=== PATIENT | male | born 1955 | race African-American/Black ===

== ENCOUNTER 2024-12-14 20:24 | Inpatient (IN) | payer OTHER, MEDICARE ==
[~2024-12-14] VITALS: Ht 170.2 cm; Wt 61.6 kg
[~2024-12-14 20:24] MED LIST: ADENOSINE 3 MG/ML 2ML VIAL IV ONE; ASPIRIN; CLOP75TA33 PO; LISI2.5T47 PO; METO25TA6 PO
[2024-12-14] MEDS: MAGNESIUM 2 G PREMIX 50 ML IV ONE (20:59)
[2024-12-14] MEDS: METHYLPREDNISOLONE SOD SUCC 125MG/2ML (ACT-O-VIAL) IV ONE (20:59)
[2024-12-14] MEDS: DILTIAZEM HCL 5MG/ML 5ML VIAL IV ONE (21:10)
[2024-12-14 21:15] VITALS: RESP 21
[2024-12-14 21:44] LABS: BASOPHILS % 0.3 % (0.0-2.0); EOSINOPHILS % 0.7 % (0.0-5.0); HEMATOCRIT. 39.7 % (42.0-52.0); HEMOGLOBIN. 12.4 g/dL (14.0-18.0); LYMPHOCYTES % 32.4 % (20.0-50.0); MEAN PLATELET VOLUME 9.8 fl (7.4-10.4); MONOCYTES % 9.5 % (2.0-8.0); NEUTROPHILS % 57.1 % (40.0-76.0); PLATELET 163 x1000/uL (130-400); RED BLOOD CELL COUNT 4.15 mill/uL (4.7-6.1); RED CELL DISTRIBUTION WIDTH 18.0 % (11.6-14.6)
[2024-12-14 21:55] LABS: CREATININE 1.2 mg/dL (0.6-1.3)
[2024-12-14 21:56] LABS: UREA NITROGEN BLOOD 11 mg/dL (9-23)
[2024-12-14 21:57] LABS: ASPARTATE AMINOTRANSFERASE 40 IU/L (<34); TROPONIN I HIGH SENSITIVITY 33 ng/L (3.0-53)
[2024-12-14 21:58] LABS: BILIRUBIN DIRECT 0.3 mg/dL (<=3.0); BILIRUBIN TOTAL 0.6 mg/dL (0.1-1.0); INR 1.5; PROTEIN TOTAL 5.8 g/dL (6.0-8.3)
[2024-12-14] MEDS: INSULIN GLARGINE 100 UNITS/ML SUBCUT SCH (22:00)
[2024-12-14] MEDS ORDERED: AZITHROMYCIN 500MG/250ML 250 ML IV SCH (22:45)
[2024-12-14] MEDS: CEFTRIAXONE 2GM/50ML 50 ML IV ONE (22:45)
[2024-12-14] MEDS ORDERED: DILTIAZEM HCL 60MG TABLET PO ONE (23:00)
[2024-12-14 23:01] VITALS: RESP 17
[2024-12-14] MEDS: IPRATROPIUM/ALBUTEROL 0.5-3(2.5)MG/3ML NEB HHN ONE (23:01)
[2024-12-14] MEDS ORDERED: ZOLPIDEM TARTRATE 5MG TABLET PO PRN (23:15)
[2024-12-14] MEDS ORDERED: ONDANSETRON HCL 4MG/2ML INJ IV PRN (23:15)
[2024-12-14] MEDS ORDERED: DEXTROSE 50% WATER 50ML SYRINGE IV PRN (23:15)
[2024-12-14] MEDS ORDERED: ACETAMINOPHEN 325MG TABLET PO PRN ×2 (23:15)
[2024-12-14] MEDS ORDERED: DIPHENHYDRAMINE 50MG/ML VIAL IV PRN (23:15)
[2024-12-14] MEDS ORDERED: MAGNESIUM/ALUMINUM HYDROXIDE/SIMETHICONE 30ML UDC PO PRN (23:15)
[2024-12-14] MEDS ORDERED: CLONIDINE 0.1MG TABLET PO PRN (23:15)
[2024-12-15] VITALS (14 sets, daily range): BP systolic 97–134; BP diastolic 79–102; PULSE 118–124; RESP 14–35; TEMP 36.3–37.2; O2SAT 97–100
[2024-12-15 00:22] LABS: BG BASE EXCESS -5.1 mmol/L (-2.0-3.0); BG CARBOXYHEMOGLOBIN 0.7 % (0.5-1.5); BG DEOXYHEMOGLOBIN 0.3 % (0.0-5.0); BG FRACTION INSPIRED OXYGEN 100; BG HCO3 ACT 19.2 mmol/L (21.0-28.0); BG METHEMOGLOBIN 0.1 % (0.5-1.5); BG OXYGEN SATURATION 99.7 % (94.0-98.0); BG OXYHEMOGLOBIN 98.9 % (94.0-98.0); BG PCO2 33.5 mmHg (35.0-48.0); BG PH 7.376 (7.350-7.450); BG PO2 579.2 mmHg (83.0-108.0); BG SAMPLE SITE RIGHT BRACHIAL; BG TOTAL HEMOGLOBIN 12.7 g/dL (13.5-17.5); BG VENT MODE MASK - BIPAP; BG VENT RATE 16.0 set
[2024-12-15] MEDS: DILTIAZEM HCL 30MG TABLET PO SCH (01:49)
[2024-12-15] MEDS: SODIUM CHLORIDE 0.9% 3ML FLUSH IVF SCH (06:00)
[2024-12-15] MEDS: CHLORDIAZEPOXIDE 25MG CAPSULE PO SCH (06:45)
[2024-12-15] MEDS: METHYLPREDNISOLONE SOD SUCC 125MG/2ML (ACT-O-VIAL) IV SCH (07:01)
[2024-12-15] MEDS: PANTOPRAZOLE 40MG DR TABLET PO SCH (08:21)
[2024-12-15] MEDS: BLOOD SUGAR DIAGNOSTIC STRIP TEST SCH (08:21)
[2024-12-15] MEDS: CARVEDILOL 6.25 MG TABLET PO SCH (08:21)
[2024-12-15] MEDS: ENOXAPARIN 80MG/0.8ML SYR SUBCUT SCH (08:22)
[2024-12-15] MEDS: NICOTINE 21MG PATCH TD SCH (08:23)
[2024-12-15] MEDS: INSULIN LISPRO 100 UNITS/ML SUBCUT SCH (08:24)
[2024-12-15] MEDS: MAGNESIUM 2 G PREMIX 50 ML IV NR (13:20)
[2024-12-16] VITALS (9 sets, daily range): BP systolic 103–130; BP diastolic 76–99; PULSE 112–120; RESP 15–27; TEMP 36.1–36.7; O2SAT 98–100
[2024-12-16] MEDS: DIGOXIN 500MCG/2ML AMP IV SCH (11:13)
[2024-12-16] MEDS: FUROSEMIDE 40MG/4ML VIAL IVP SCH (11:51)
[2024-12-16] MEDS: AMIODARONE 150MG/100ML D5W 100 ML IV NR (12:14)
[2024-12-16] MEDS: AMIODARONE 360MG/200ML 200 ML IV SCH (13:39)
[2024-12-16] MEDS: IPRATROPIUM/ALBUTEROL 0.5-3(2.5)MG/3ML NEB HHN PRN (17:25)
[2024-12-17] VITALS (10 sets, daily range): BP systolic 83–140; BP diastolic 65–101; PULSE 108–118; RESP 15–31; TEMP 36.5–36.7; O2SAT 98–100
[2024-12-17] MEDS: AMIODARONE HCL 900 MG in DEXT 5% WATER 500 ML IV SCH (03:04)
[2024-12-17] MEDS: FUROSEMIDE 40MG/4ML VIAL IVP SCH (09:00)
[2024-12-17] MEDS: AMIODARONE 200MG TABLET PO SCH (09:12)
[2024-12-17] MEDS: ENOXAPARIN 60MG/0.6ML SYR SUBCUT SCH (09:14)
[2024-12-17 16:05] LABS: HEMATOCRIT. 38.6 % (42.0-52.0); HEMOGLOBIN. 12.4 g/dL (14.0-18.0); MEAN PLATELET VOLUME 10.0 fl (7.4-10.4); PLATELET 194 x1000/uL (130-400); RED BLOOD CELL COUNT 4.18 mill/uL (4.7-6.1); RED CELL DISTRIBUTION WIDTH 17.3 % (11.6-14.6)
[2024-12-17 16:18] LABS: CREATININE 1.4 mg/dL (0.6-1.3); UREA NITROGEN BLOOD 25 mg/dL (9-23)
[2024-12-17 16:41] LABS: LYMPHOCYTES % MANUAL 4.0 % (20.0-50.0); MONOCYTES % MANUAL 6.0 % (2.0-8.0); NEUTROPHILS % MANUAL 90.0 % (45.0-75.0); PLATELET ESTIMATE NORMAL
[2024-12-18] VITALS (11 sets, daily range): BP systolic 89–120; BP diastolic 58–95; PULSE 99–115; RESP 17–27; TEMP 36.3–36.6; O2SAT 97–100
[2024-12-18] MEDS: AMIODARONE 200MG TABLET PO SCH (09:23)
[2024-12-18] MEDS: FAMOTIDINE 20MG TABLET PO SCH (20:52)
== END 2024-12-18 22:00 | disposition short-term general hospital (02) | DRG 291 ==
LOC: ER 20:24 → 5EST 22:46 → EDBEDREQTM 22:51 → EDBEDREQ 22:51 → ENRESERV 23:11
PROVIDERS: ADMIT Internal Medicine; ATTEND Internal Medicine
PROC: 5A09357 Assistance with Respiratory Ventilation, Less than 24 Consecutive Hours, Continuous Positive Airway Pressure (ICD-10-PCS; principal; 2024-12-14)
PROC: 5A09357 Assistance with Respiratory Ventilation, Less than 24 Consecutive Hours, Continuous Positive Airway Pressure (ICD-10-PCS; 2024-12-15)
DX: I50.43 Acute on chronic combined systolic (congestive) and diastolic (congestive) heart failure (principal); J96.01 Acute respiratory failure with hypoxia; J44.1 Chronic obstructive pulmonary disease with (acute) exacerbation; I48.92 Unspecified atrial flutter; F17.200 Nicotine dependence, unspecified, uncomplicated; I48.91 Unspecified atrial fibrillation; I25.10 Atherosclerotic heart disease of native coronary artery without angina pectoris; F10.10 Alcohol abuse, uncomplicated; I25.2 Old myocardial infarction; Z85.46 Personal history of malignant neoplasm of prostate; Z55.6 Problems related to health literacy; Z95.5 Presence of coronary angioplasty implant and graft; Z80.42 Family history of malignant neoplasm of prostate
CPT/HCPCS: 36415; 36600; 71045; 80048; 80076; 82375; 82805; 82962; 83036; 83735; 83880; 84484; 85025; 93005; 93306; 94070; 94640; 94660; 99291; A4606; J0153; J0282; J0696; J1160; J1650; J1815; J1938; J2919; J3475; J3490; J7060